=== PATIENT | male | born 1935 ===

== ENCOUNTER 2017-01-15 14:30 | Inpatient (IN) | payer MEDICARE, OTHER ==
[~2017-01-15] VITALS: Ht 185.4 cm; Wt 71.3 kg
[2017-01-15 15:20] VITALS: BP 175/65
[2017-01-16 08:45] VITALS: BP 133/58
[2017-01-16] MEDS: BENAZEPRIL 5 MG TABLET PO SCH (09:25)
[2017-01-16] MEDS ORDERED: FENTANYL PF 100 MCG/2ML ONE (11:30)
[2017-01-16] MEDS ORDERED: MIDAZOLAM 1 MG/ML, 5ML ONE (11:30)
[2017-01-16] MEDS ORDERED: LIDOCAINE 2%, 20ML ONE (11:31)
[2017-01-16] MEDS ORDERED: CEFAZOLIN PMX 1GM/50ML 50 ML ONE (11:31)
[2017-01-16] MEDS ORDERED: CEFAZOLIN 1,000 MG ONE (11:31)
[2017-01-16] MEDS ORDERED: hydrALAzine 20 MG/ML, 1ML IV PRN (18:30)
[2017-01-16] MEDS ORDERED: ONDANSETRON 2MG/ML, 2ML IVPush PRN (18:30)
[2017-01-16] MEDS ORDERED: ACETAMINOPHEN 325 MG TABLET PO PRN (18:30)
[2017-01-16] MEDS: INSULIN ASPART 100 UNITS/ML, PEN SQ-INSULIN SCH ×2 (18:37→21:10)
[2017-01-16] MEDS ORDERED: PLEASE ENTER ALLERGIES MC SCH ×2 (20:00)
[2017-01-16] MEDS ORDERED: ATORVASTATIN 10 MG TABLET PO ONE (20:30)
[2017-01-16] MEDS ORDERED: ATORVASTATIN 10 MG TABLET PO SCH (21:00)
[2017-01-16] MEDS: CEFAZOLIN PMX 1GM/50ML 50 ML IV SCH (21:09)
[2017-01-16 21:50] VITALS: BP 121/71
[2017-01-17 02:25] VITALS: BP 128/69
[2017-01-17] MEDS: CEFAZOLIN PMX 1GM/50ML 50 ML IV SCH (05:25)
[2017-01-17] MEDS: INSULIN ASPART 100 UNITS/ML, PEN SQ-INSULIN SCH ×2 (07:00→11:20)
[2017-01-17 07:53] VITALS: BP 129/72
[2017-01-17] MEDS ORDERED: TRAJENTA 5 MG PO SCH (09:00)
[2017-01-17] MEDS ORDERED: BENAZEPRIL 5 MG TABLET PO SCH (09:00)
[2017-01-17] MEDS: BENAZEPRIL 5 MG TABLET PO SCH (09:48)
[2017-01-17 13:42] VITALS: BP 136/76
[2017-01-17] MEDS ORDERED: TRAJENTA PO (15:33)
[2017-01-17] MEDS ORDERED: ATOR10TA9 PO (15:33)
[2017-01-17] MEDS ORDERED: ASPI-621 PO (15:34)
[2017-01-17] MEDS ORDERED: GLIP5TAB10 PO (15:34)
[2017-01-17] MEDS ORDERED: TRAM50TA2 PO (15:34)
[2017-01-17] MEDS ORDERED: BENA5TAB2 PO (15:34)
[2017-01-17 20:56] LABS: ASPARTATE AMINO TRANSFERASE 26 U/L (15-37); BLOOD UREA NITROGEN 42 mg/dL (7-18)
[2017-01-17 20:57] LABS: IS PT STATUS REG ER OR PRE ER? YES
[2017-01-18 14:24] LABS: DIFF TOTAL CELLS COUNTED 100 CELL DIFF
[2017-01-18 14:25] LABS: VERIFY COUNTS? YES
== END 2017-01-17 16:41 | disposition home or self-care (01) | DRG 244 ==
LOC: CCU 14:30 → 5SO 01-16 16:50 → DCLOUNGE 01-17 16:21
PROVIDERS: ADMIT Internal Medicine; ATTEND Internal Medicine
PROC: 0JH606Z Insertion of Pacemaker, Dual Chamber into Chest Subcutaneous Tissue and Fascia, Open Approach (ICD-10-PCS; principal; 2017-01-16)
PROC: 02H63JZ Insertion of Pacemaker Lead into Right Atrium, Percutaneous Approach (ICD-10-PCS; 2017-01-16)
PROC: 02HK3JZ Insertion of Pacemaker Lead into Right Ventricle, Percutaneous Approach (ICD-10-PCS; 2017-01-16)
DX: I44.2 Atrioventricular block, complete (principal); E11.9 Type 2 diabetes mellitus without complications; I10 Essential (primary) hypertension; E78.5 Hyperlipidemia, unspecified; D46.9 Myelodysplastic syndrome, unspecified; R94.31 Abnormal electrocardiogram [ECG] [EKG]
CPT/HCPCS: 33208; 36415; 71010; 80053; 82947; 82962; 83735; 84100; 84484; 85025; 85610; 93005; 99156; 99157; C1779; C1785; C1892; J0690; J2250; J3010; J3490